=== PATIENT | female | born 1975 | race American Indian/Alaskan Native ===

== ENCOUNTER 2019-10-17 09:11 | Emergency (ER) | payer MEDICAID ==
[2019-10-17] MEDS ORDERED: ONDANSETRON 4 MG/2 ML INJ IV ONE (09:45)
[2019-10-17] MEDS ORDERED: MORPHINE 4 MG/1 ML INJ IV ONE (09:45)
--- NOTE | 2019-10-17 09:46 | Emergency Department Report ---
HPI - General Chief Complaint: Extremity Injury, Upper Time Seen by Provider: 10/17/19 09:32 - HPI HPI: This is a 43-year-old female, who is right-hand dominant, who presents to the emergency department with complaint of left wrist pain after she slipped and fell at work. She says that she fell with outstretched arms. She was brought in by her to be seen. She denies hitting her head or any loss of consciousness. She has not taken anything for her symptoms prior to presentation today. ED Past Medical Hx - Past Medical History Previous Medical History?: No - Surgical History Past Surgical History?: No - Social History Smoking Status: Never Smoker - Medications Home Medications: Home Medications Medication Instructions Recorded Confirmed Last Taken Type oxyCODONE /ACETAMINOPHEN [Percocet 1 tab PO Q6HR PRN #15 tablet 10/17/19 Unknown Rx 5/325] ED Review of Systems ROS: Stated complaint: LFT WRIST PAIN/INJURY Other details as noted in HPI Comment: All other systems reviewed and negative Constitutional: denies: chills, fever Musculoskeletal: joint swelling, arthralgia Skin: denies: rash, lesions Neurological: denies: numbness, paresthesias Physical Exam - Physical Exam Vital Signs: Vital Signs 10/17/19 10/17/19 09:22 09:36 Temperature 98.1 F Pulse Rate 80 87 Respiratory 20 22 Rate Blood Pressure 117/77 Blood Pressure 106/62 [Left] O2 Sat by Pulse 100 100 Oximetry Physical Exam: GENERAL: The patient is well-developed well-nourished. HENT: Normocephalic. Atraumatic. Patient has moist mucous membranes. EYES: Extraocular motions are intact. NECK: Supple. Trachea is midline. ABDOMEN: There is no abdominal distention. SKIN: Skin is warm and dry. NEURO: The patient is awake, alert, and oriented. The patient is cooperative. The patient has no focal neurologic deficits. Normal speech. MUSCULOSKELETAL: There is tenderness and mild deformity to the left wrist. Decreased range of motion of the left wrist secondary to pain. Patient is able to move all 5 fingers of her left hand. Capillary refill less than 2 seconds. Radial pulse +2/4 to the affected left wrist. ED Course Vital Signs 10/17/19 10/17/19 09:22 09:36 Temperature 98.1 F Pulse Rate 80 87 Respiratory 20 22 Rate Blood Pressure 117/77 Blood Pressure 106/62 [Left] O2 Sat by Pulse 100 100 Oximetry ED Medical Decision Making - Radiology Data Radiology results: report reviewed LEFT WRIST 3 VIEWS INDICATION: fall/swelling/fracture. COMPARISON: None. IMPRESSION: A comminuted impacted fracture is identified in the distal radius with extension to the radiocarpal joint. Approximately 40 degrees posterior angulation is also evident on the lateral image. The distal ulna and carpal bones are intact. There is suggestion of mild widening of the scapholunate interval which could represent scapholunate ligament injury as well. The remaining carpal bones are in normal alignment. Diffuse soft tissue swelling is noted. - Medical Decision Making This patient presents to the emergency department after she had a fall at work with an outstretched hand causing left wrist pain and some mild deformity. X- ray shows distal radius comminuted and impacted fracture with some dorsal angulation. There is also some scapholunate widening concerning for ligamentous injury. Patient is neurovascularly intact with capillary refill less than 2 seconds, +2/4 radial pulse to the affected left wrist, and she is able to move all 5 fingers on that left hand. She was given some IV analgesia and placed in a thumb spica splint going down to the proximal forearm. The patient was reevaluated after splint placement and once again is still neurovascularly intact. The patient has been given multiple referrals for orthopedic groups, but may also need to follow-up with her Worker's Compensation physicians. Patient understands that she should return to the closest emergency department with any increased pain, new pain, numbness or paresthesias, color change to the skin, or with any acute distress. I checked the [employer] prescription monitoring system and this patient has not filled any narcotic or scheduled medications over the past 2 years. Critical Care Time: No Critical care attestation.: If time is entered above; I have spent that time in minutes in the direct care of this critically ill patient, excluding procedure time. ED Disposition Clinical Impression: Scapholunate dissociation of left wrist Distal radius fracture, left Qualifiers: Encounter type: initial encounter Fracture type: closed Fracture morphology: unspecified fracture morphology Qualified Code(s): S52.502A - Unspecified fracture of the lower end of left radius, initial encounter for closed fracture Disposition: DC- TO HOME OR SELFCARE Is pt being admited?: No Condition: Stable Instructions: Wrist Fracture in Adults (ED) Additional Instructions: Please follow-up with an orthopedist in the next few days. I am giving you a referral for to local orthopedic groups, Dr. Escudero and [facility]. Since this happened at work, please contact your employer regarding any Worker's Compensation physicians that you are required to follow-up with or see. Keep the splint on until follow-up with an orthopedist. Return to the emergency department immediately with any worsening of your symptoms including any increased pain, new pain, numbness or color change to your fingers or hand, increased swelling, or with any acute distress. You have been prescribed a medication that is sedating and therefore should not be taken prior to driving, working, and responsible for children and in no way should be mixed with alcohol of any quantity. Prescriptions: oxyCODONE /ACETAMINOPHEN [Percocet 5/325] 1 tab PO Q6HR PRN #15 tablet PRN Reason: Pain Referrals: PRIMARY MD SATINDER [Primary Care Provider] - 3-5 Days JOSIAH ESCUDERO MD [Staff Physician] - 3-5 Days [facility] [Provider Group] - 3-5 Days Time of Disposition: 12:54
--- NOTE | 2019-10-17 09:58 | XRay Report ---
LEFT WRIST 3 VIEWS INDICATION: fall/swelling/fracture. COMPARISON: None. IMPRESSION: A comminuted impacted fracture is identified in the distal radius with extension to the radiocarpal joint. Approximately 40 degrees posterior angulation is also evident on the lateral image . The distal ulna and carpal bones are intact. There is suggestion of mild widening of the scapholuna te interval which could represent scapholunate ligament injury as well. The remaining carpal bones ar e in normal alignment. Diffuse soft tissue swelling is noted. Signer Name: Orion Pratt Jr, MD Signed: 10/17/2019 9:54 AM Workstation Name: [id number]
[2019-10-17] MEDS ORDERED: fentaNYL 100 MCG/2 ML INJ IV ONE ×2 (10:32→11:20)
[2019-10-17 13:37] VITALS: BP 123/70
== END 2019-10-17 13:37 | disposition home or self-care (01) ==
LOC: ED 09:11
DX: S52.502A Unspecified fracture of the lower end of left radius, initial encounter for closed fracture (principal); S63.095A Other dislocation of left wrist and hand, initial encounter; Z79.899 Other long term (current) drug therapy; Z88.8 Allergy status to other drugs, medicaments and biological substances; W01.0XXA Fall on same level from slipping, tripping and stumbling without subsequent striking against object, initial encounter; Y93.89 Activity, other specified; Y92.89 Other specified places as the place of occurrence of the external cause; Y99.0 Civilian activity done for income or pay
CPT/HCPCS: 29125; 73110; 96374; 96375; 96376; 99284; J2270; J2405; J3010

== ENCOUNTER → 2019-10-20 19:40 | Emergency (ER) | payer MEDICAID | END | disposition left against medical advice (07) | LOC: ED 19:40 | DX: R07.9 Chest pain, unspecified (principal); Z53.21 Procedure and treatment not carried out due to patient leaving prior to being seen by health care provider ==

== ENCOUNTER 2019-10-21 14:47 | Emergency (ER) | payer MEDICAID ==
[2019-10-21 15:33] LABS: Basophils % (Auto) 0.3 % (0.0-1.8); Eosinophils # (Auto) 0.1 K/mm3 (0.0-0.4); Hematocrit 35.3 % (30.3-42.9); Hemoglobin 11.7 gm/dl (10.1-14.3); Lymphocytes # (Auto) 1.1 K/mm3 (1.2-5.4); Lymphocytes % (Auto) 14.3 % (13.4-35.0); Mean Corpuscular HGB Conc 33 % (30-34); Mean Corpuscular Volume 97 fl (79-97); Monocytes # (Auto) 0.3 K/mm3 (0.0-0.8); Monocytes % (Auto) 4.6 % (0.0-7.3); Platelet Count 298 K/mm3 (140-440); Red Blood Count 3.63 M/mm3 (3.65-5.03); Red Cell Distribution Width 16.1 % (13.2-15.2)
--- NOTE | 2019-10-21 15:39 | XRay Report ---
CHEST 1 VIEW INDICATION: Chest Pain. COMPARISON: None FINDINGS: SUPPORT DEVICES: None. HEART: Within normal limits. LUNGS/PLEURA: No acute air space or interstitial disease. ADDITIONAL FINDINGS: None. IMPRESSION: 1. No acute findings. Signer Name: Salinas Locke MD Signed: 10/21/2019 3:35 PM Workstation Name: [id number]
[2019-10-21 15:42] LABS: BUN/Creatinine Ratio 15; Blood Urea Nitrogen 12 mg/dL (7-17); Calcium 9.6 mg/dL (8.4-10.2); Hemolysis Index 29
[2019-10-21] MEDS ORDERED: LIDOCAINE VISCOUS 2% 15 ML ORAL LIQD PO ONE (16:26)
[2019-10-21] MEDS ORDERED: ALUM-MAG HYDROXIDE-SIMETHICONE 200-200-20MG/5ML ORAL LIQD 30 ML PO ONE (16:26)
[2019-10-21] MEDS ORDERED: diphenhydrAMINE 50 MG/ML VIAL IV ONE (16:26)
[2019-10-21] MEDS ORDERED: methylPREDNISolone Sod Succinate 125 MG/2 ML INJ IV ONE (16:26)
[2019-10-21] MEDS: ASPIRIN 325 MG TAB PO ONE ×2 (16:32→16:33)
--- NOTE | 2019-10-21 16:32 | Emergency Department Report ---
ED Chest Pain HPI - General Chief Complaint: Chest Pain Stated Complaint: Chest pain Time Seen by Provider: 10/21/19 16:12 Source: patient Mode of arrival: Ambulatory Limitations: No Limitations - History of Present Illness Initial Comments: Patient is 43 years old female with no significant past medical history. Patient had a recent left forearm fracture for which she was prescribed oxycodone for pain control. Patient presented to the ER stating that she started having chest pain immediately after she took oxycodone. Patient described her pain as substernal and mainly down to the epigastric area does not radiate to the left chest. Patient is crying in tears. Patient stated that she has similar episode when she had allergy to ibuprofen. Patient denies any shortness of breath, fever, chills, nausea or vomiting. MD Complaint: chest pain -: days(s) (2) Onset: during rest Pain Location: substernal Pain Radiation: none Severity: moderate Severity scale (0 -10): 5 Quality: sharp - Related Data Previous Rx's Medication Instructions Recorded Last Taken Type oxyCODONE /ACETAMINOPHEN [Percocet 1 tab PO Q6HR PRN #15 tablet 10/17/19 Unknown Rx 5/325] Allergies Allergy/AdvReac Type Severity Reaction Status Date / Time ibuprofen Allergy Unknown Verified 10/17/19 09:24 Heart Score - HEART Score History: Slightly suspicious EKG: Normal Age: < 45 Risk factors: No known risk factors Troponin: < normal limit HEART Score: 0 - Critical Actions Critical Actions: 0-3 pts:0.9-1.7%risk of adverse cardiac event.Candidate for d ischarge ED Review of Systems ROS: Stated complaint: Chest pain Other details as noted in HPI Comment: All other systems reviewed and negative Constitutional: denies: chills, fever Cardiovascular: chest pain. denies: palpitations, dyspnea on exertion Gastrointestinal: denies: abdominal pain, nausea, vomiting, diarrhea, constipation, hematemesis, melena, hematochezia Musculoskeletal: denies: back pain Neurological: denies: headache, weakness, numbness, paresthesias, confusion, abnormal gait ED Past Medical Hx - Social History Smoking Status: Never Smoker - Medications Home Medications: Home Medications Medication Instructions Recorded Confirmed Last Taken Type oxyCODONE /ACETAMINOPHEN [Percocet 1 tab PO Q6HR PRN #15 tablet 09/10/20 Unknown Rx 5/325] ED Physical Exam - General Limitations: No Limitations General appearance: alert, in distress (Secondary to pain) - Head Head exam: Present: atraumatic, normocephalic, normal inspection - Eye Eye exam: Present: normal appearance - ENT ENT exam: Present: normal exam, normal orophraynx, mucous membranes moist - Neck Neck exam: Present: normal inspection, full ROM. Absent: tenderness, meningismus - Respiratory Respiratory exam: Present: normal lung sounds bilaterally - Cardiovascular Cardiovascular Exam: Present: regular rate, normal rhythm, normal heart sounds - GI/Abdominal GI/Abdominal exam: Present: soft, normal bowel sounds. Absent: distended, te nderness, guarding, rebound, rigid, organomegaly, mass, bruit, pulsatile mass - Extremities Exam Extremities exam: Present: normal inspection, full ROM, normal capillary refill. Absent: pedal edema, calf tenderness - Back Exam Back exam: Present: normal inspection, full ROM. Absent: CVA tenderness (R), CVA tenderness (L) - Neurological Exam Neurological exam: Present: alert, oriented X3, CN II-XII intact, normal gait, reflexes normal - Psychiatric Psychiatric exam: Present: normal mood - Skin Skin exam: Present: warm, intact, normal color ED Course Vital Signs 10/21/19 10/21/19 10/21/19 14:53 16:58 17:00 Temperature 98.0 F Pulse Rate 77 Respiratory 24 Rate Blood Pressure 122/71 Blood Pressure 118/76 [Right] O2 Sat by Pulse 100 98 99 Oximetry 10/21/19 10/21/19 10/21/19 17:15 17:30 17:46 Temperature Pulse Rate Respiratory Rate Blood Pressure 111/71 111/68 125/81 Blood Pressure [Right] O2 Sat by Pulse 97 96 98 Oximetry ED Medical Decision Making - Lab Data Result diagrams: 10/21/19 15:07 10/21/19 15:07 - EKG Data -: EKG Interpreted by [facility] EKG shows normal: sinus rhythm Rate: normal - EKG Data Interpretation: no acute changes - Radiology Data Radiology results: report reviewed - Medical Decision Making Patient is 43 years old female with no significant past medical history. Patient had a recent left forearm fracture for which she was prescribed oxycodone for pain control. Patient presented to the ER stating that she started having chest pain immediately after she took oxycodone. Patient described her pain as substernal and mainly down to the epigastric area does not radiate to the left chest. Patient is crying in tears. Patient stated that she has similar episode when she had allergy to ibuprofen. Patient denies any shortness of breath, fever, chills, nausea or vomiting. EKG showed no ST elevation or depression. Chest x-ray is unremarkable. Labs reviewed and is unremarkable except for elevated d-dimer. Patient CTA of the chest is negative for pulmonary embolism. Patient symptoms most likely a side effect of her oxycodone. Patient advised to stop oxycodone and will replace with tramadol. Patient symptoms significantly improved with Benadryl and Solu- Medrol. Patient advised to follow-up with her primary doctor in the next 2 to 3 days and to return to the ER she develop any new symptoms. Critical care attestation.: If time is entered above; I have spent that time in minutes in the direct care of this critically ill patient, excluding procedure time. ED Disposition Clinical Impression: Shortness of breath, Chest pain Disposition: - TO HOME OR SELFCARE Is pt being admited?: No Condition: Stable Instructions: Chest Pain (ED) Referrals: CHLOE LINO MD [Primary Care Provider] - 3-5 Days
--- NOTE | 2019-10-21 18:27 | Cat Scan Report ---
CTA CHEST WITH IV CONTRAST INDICATION: CHEST PAIN WITH ELEVATED D-DIMER. TECHNIQUE: Axial CT images were obtained through the chest after injection of 100 cc Omni 350 IV contrast. 3 deborah ne MIP reconstructions were produced. All CT scans at this location are performed using CT dose reduc tion for ALARA by means of automated exposure control. COMPARISON: None available. FINDINGS: PULMONARY ARTERIES: No pulmonary emboli. THORACIC AORTA: No acute abnormality. HEART: Normal. CORONARY ARTERIES: No significant calcification. PLEURA: No pleural effusion. No pneumothorax. LYMPH NODES: No significant adenopathy. LUNGS: Mild dependent increased interstitial and groundglass opacities worrisome for mild dependent p ulmonary edema ADDITIONAL FINDINGS: None. UPPER ABDOMEN: No acute findings. SKELETAL STRUCTURES: No significant osseous abnormality. IMPRESSION: 1. No CT evidence for pulmonary embolism. 2. Probable mild CHF Signer Name: Ramses Dixon MD Signed: 10/21/2019 6:22 PM Workstation Name: [id number]
[2019-10-21 21:25] VITALS: BP 108/56
== END 2019-10-21 21:27 | disposition home or self-care (01) ==
LOC: ED 14:47
DX: R07.89 Other chest pain (principal); R06.02 Shortness of breath
CPT/HCPCS: 36415; 71045; 71275; 80048; 84484; 84703; 85025; 85379; 93005; 96374; 96375; 99285; J1200; J2930; Q9967

== ENCOUNTER 2020-06-06 12:52 | Emergency (ER) | payer OTHER, MEDICAID ==
[2020-06-06 14:05] VITALS: BP 125/69
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
== END 2020-06-06 19:00 | disposition home or self-care (01) ==
LOC: ED 12:52
DX: S39.012A Strain of muscle, fascia and tendon of lower back, initial encounter (principal); S16.1XXA Strain of muscle, fascia and tendon at neck level, initial encounter; S76.011A Strain of muscle, fascia and tendon of right hip, initial encounter; M62.838 Other muscle spasm; Z79.899 Other long term (current) drug therapy; Z88.6 Allergy status to analgesic agent; V49.59XA Passenger injured in collision with other motor vehicles in traffic accident, initial encounter; Y92.410 Unspecified street and highway as the place of occurrence of the external cause; Y93.89 Activity, other specified; Y99.8 Other external cause status
CPT/HCPCS: 72040; 72100